=== PATIENT | male | born 1980 | race Caucasian/White ===

== ENCOUNTER 2017-09-17 00:41 | Emergency (ER) | payer BC ==
[~2017-09-17] VITALS: Ht 200.7 cm; Wt 103.4 kg
[2017-09-17 00:44] VITALS: Ht 200.7 cm; Wt 103.4 kg
[2017-09-17 05:03] LABS: UA SPECIFIC GRAVITY 1.015 (1.005-1.035); microscopic required? YES; urine erythrocyte 2+ (NEGATIVE)
[2017-09-17 05:04] LABS: BASOPHIL % 0.3 % (0-2); PLATELET COUNT 213 x10^3mcL (130-400); RED CELL DISTRIBUTION WIDTH 12.7 % (11.5-14.5)
[2017-09-17 05:10] LABS: CALCIUM 8.9 mg/dL (8.5-10.1); CARBON DIOXIDE 28.3 mmol/L (21-32); CHLORIDE SERUM 103 mmol/L (98-107); CREATININE SERUM 1.1 mg/dL (0.7-1.3); GFR1 > 60 mL/min; GLUCOSE SERUM 110 mg/dL (74-106); POTASSIUM SERUM 3.7 mmol/L (3.5-5.1); SODIUM SERUM 141 mmol/L (136-145)
[2017-09-17 05:20] VITALS: BP 128/69
== END 2017-09-17 05:20 | disposition home or self-care (01) ==
LOC: ED 00:41
PROVIDERS: Emergency Medicine
DX: R33.9 Retention of urine, unspecified (principal)
CPT/HCPCS: 36415